=== PATIENT | male | born 1970 | race Caucasian/White ===

== ENCOUNTER 2019-03-22 09:52 | Outpatient (CLI) | payer OTHER ==
--- NOTE | 2019-03-22 12:04 | Diagnostic Imaging Report ---
HUDSON LOGAN [facility] [address] [facility] [address] [place] [address]. [id number] Report Submission Date: Mar 22, 2019 10:59:18 AM CDT Patient Study Name: JAIMEE ROBERTO Date: Mar 22, 2019 10:03:43 AM CDT Modality Type: DX Gender: M Description: FOOT 3 VIEWS OR MORE : 68 Institution: [facility] Physician: HUDSON LOGAN Examination: Plain film left foot History: Trauma to Lt foot, pt c/o rash, swelling & skin splitting Findings: 3 weightbearing views of the left foot demonstrates normal cortical margins. No fracture or dislocation. Inferior calcaneal spur. No soft tissue swelling. No joint effusion. Impression: No acute osseous process. Electronically signed on Mar 22, 2019 10:59:18 AM CDT by: Robb ELIAS
== END 2019-03-22 09:54 ==
LOC: RAD 09:52
PROVIDERS: ATTEND Podiatrist Foot & Ankle Surgery
DX: S99.922A Unspecified injury of left foot, initial encounter (principal); L03.116 Cellulitis of left lower limb
CPT/HCPCS: 73630

== ENCOUNTER 2019-03-24 12:50 | Outpatient (CLI) | payer OTHER ==
--- NOTE | 2019-04-01 08:04 | OP Clinic Progress Note ---
DATE OF VISIT: 03/24/2019 SUBJECTIVE: Jon Reyes is a 48-year-old male who presented to clinic today for follow-up of a left foot injury/cellulitis/tinea pedis. The patient was seen in clinic earlier this week on Thursday for an initial visit and evaluation. The patient was started on antibiotics at that time. The patient was placed on Augmentin as well as terbinafine for the tinea pedis that was on not only the foot but also on the other foot and other portions of the body and lower legs. The patient was also given a Lotrisone prescription that he was encouraged to hold off on using until I give him further word as he is already taking antifungal orally. The patient presented today for follow-up as this left foot recently became quite red, swollen and draining with several fissures and serous drainage out of many of those fissures. The patient had recently about a week ago dropped something on his left fourth toe for which we also obtained x-rays and reviewed with him today for a fourth toe possible small fracture in the proximal phalanx. The patient was unable to do manjeet taping and also wanted to discuss that today. He does not admit to any fevers, chills, nausea, vomiting, shortness of breath or chest pain. He states that he is completely willing to do whatever he needs to do regarding going back to work, etc. in order to get this doing better. He states that he feels it is doing slightly better at this time and just slightly less painful but he is obviously still concerned about how he is doing at this time. He does not admit to any fevers, chills, nausea, vomiting shortness of breath or chest pain. OBJECTIVE: Vitals: Temperature 98.9 degrees Fahrenheit, heart rate 85, respiration rate 18, blood pressure 139/75. O2 saturation is 97% on room air. Vascular: 2+ DP and PT pulses, left foot. Capillary refill time is less than 3 seconds to the toes of the left foot still. There is moderate to severe edema still noted in the left foot. Overall, it is perhaps slightly improved from last time. Dermatologic: The patient has several fissures and slightly raw lesions on the left foot dorsally as well as a fissure on the posterior heel and on the left lateral foot distally and medially. The patient had these debrided today which had some bleeding evident. The patient does not have any purulence or malodor noted. There is maceration noted between the toes, however, still. The patient still has continued evidence of tinea pedis on the right foot and on the lower legs. This is a symptom that has been recurrent but he has never had this significant edema and fissures noted like they are on the left foot at this time. There is still overall some warmth to the left foot versus the right. Musculoskeletal: There is no fluctuance with palpation of the left foot. There were no other gross abnormalities noted outside the fact that the left foot appears to be almost twice the size of his right foot at this time. The skin is not firm or seemingly full of pressure in any way in any of the compartments. The patient does have pain on palpation especially noted in the arch region as well as the left lateral foot. Neurologic: The patient has light touch sensation intact to the toes, left foot. ASSESSMENT AND PLAN: 1. Left foot injury. 2. Left foot cellulitis. 3. Left foot tinea pedis. 4. Possible left fourth toe closed fracture of the proximal phalanx. Overall the patient seems to be improving. He has only taken 4 doses of his antibiotic so far as we just prescribed it 2 afternoons ago. We discussed the importance of continuing these and I encouraged the patient to still hold off on using the Lotrisone at this time as he still has open lesions on his foot. We discussed in depth the importance of continuing this treatment plan so far and we will also obtain an MRI. I dont want to miss if there is any sort of possible abscess or other underlying condition that is causing this or injury. MRI with/without contrast was ordered today and is set up for the patient to obtain tomorrow evening at 6:15 p.m. The patient is understanding of the plan to obtain an MRI and we have called to try and reach him to let him know about that appointment. We were unable to reach him but we will try again tomorrow. Gale with referrals has agreed to try and make sure he knows. The patient has no further questions or concerns. The patient was dressed today with triple antibiotic ointment on the fissures after light debridement of the hyperkeratotic lesion on the edges of the fissures today with a #15 blade and the patient was dressed with 4x4 gauze and Kerlix and was placed in a surgical shoe today. The patient understands that he will not be going back to work on Thursday at this time but that we would like to see him on Thursday for his already set up appointment at 3:45 p.m. The patient if not improving at that time will need to obtain labs and we will need to more aggressively look at whats going on at that time. The patient was encouraged to bring a CD of his images at that time as well. The patient had no further questions or concerns and we will plan on seeing him on Thursday. If we need to we will also consider adjusting antibiotics if he is not significantly improving. We may even need to consider admission with IV antibiotics if he is not improving at that time. Mila CowanPGloM. (Dictated/Not Signed) Jose Job#: [id number] [id number]
== END 2019-03-24 13:20 ==
LOC: POD 12:50
PROVIDERS: ATTEND Podiatrist Foot & Ankle Surgery
DX: S99.922A Unspecified injury of left foot, initial encounter (principal); X50.9XXA Other and unspecified overexertion or strenuous movements or postures, initial encounter; L03.116 Cellulitis of left lower limb; B35.3 Tinea pedis
CPT/HCPCS: 99213

== ENCOUNTER 2019-04-20 16:05 | Outpatient (CLI) | payer OTHER ==
[2019-04-20 16:44] LABS: eGFR (Non-African) > 60
== END 2019-04-20 16:07 ==
LOC: LAB 16:05
PROVIDERS: ATTEND Family Medicine
DX: I10 Essential (primary) hypertension (principal)
CPT/HCPCS: 36415; 80048